=== PATIENT | male | born 1985 | race Caucasian/White ===

== ENCOUNTER 2018-12-10 15:01 | Emergency (ER) | payer MEDICAID ==
[~2018-12-10] VITALS: Ht 172.7 cm; Wt 63.6 kg
[2018-12-10] MEDS ORDERED: BENZ1TAB7 PO (15:36)
[2018-12-10] MEDS ORDERED: OSC500T PO (15:36)
[2018-12-10] MEDS ORDERED: DOCU-28 PO (15:36)
[2018-12-10 15:56] LABS: URINE AMPHETAMINE SCREEN NEGATIVE (Neg); URINE BARBITUATE SCREEN NEGATIVE (Neg); URINE BENZODIAZEPINES SCREEN NEGATIVE (Neg); URINE CANNABINOID SCREEN NEGATIVE (Neg); URINE COCAINE SCREEN NEGATIVE (Neg); URINE METHADONE SCREEN NEGATIVE (Neg); URINE OPIATE SCREEN NEGATIVE (Neg); URINE PHENCYCLIDINE SCREEN NEGATIVE (Neg)
[2018-12-10 15:57] LABS: BASOPHILS # (AUTO) 0.1 X10'3 (0-0.2); BASOPHILS % (AUTO) 0.7 % (0-1); EOSINOPHILS # (AUTO) 0.1 X10'3 (0-0.9); EOSINOPHILS % (AUTO) 0.9 % (0-6); HEMATOCRIT 43.5 % (42.0-52.0); HEMOGLOBIN 15.3 g/dl (14.0-17.9); LYMPHOCYTES # (AUTO) 1.9 X10'3 (1.1-4.8); LYMPHOCYTES % (AUTO) 19.7 % (21-51); MEAN CORPUSCULAR HEMOGLOBIN 29.9 PG (27.0-31.0); MEAN CORPUSCULAR HGB CONC 35.1 g/dL (33.0-36.5); MEAN CORPUSCULAR VOLUME 85.1 FL (78-98); MEAN PLATELET VOLUME 7.8 FL (7.4-10.4); MONOCYTES # (AUTO) 0.6 X10'3 (0-0.9); MONOCYTES % (AUTO) 6.4 % (2-12); NEUTROPHILS # (AUTO) 6.8 X10'3 (1.8-7.7); NEUTROPHILS % (AUTO) 72.3 % (42-75); PLATELET COUNT 255 X10'3 (140-440); RED BLOOD COUNT 5.11 X10'6 (4.70-6.10); RED CELL DISTRIBUTION WIDTH 13.1 % (11.5-14.5); WHITE BLOOD COUNT 9.5 X10'3 (4.5-11.0)
[2018-12-10 15:58] LABS: CLARITY,URINE CLEAR (Clear); COLOR,URINE YELLOW (Yellow); GLUCOSE, URINE NEGATIVE (Neg); KETONES,URINE NEGATIVE (Neg); LEUKOCYTE ESTERASE ,URINE NEGATIVE (Neg); NITRITES, URINE NEGATIVE (Neg); OCCULT BLOOD,URINE NEGATIVE (Neg); PROTEIN,URINE NEGATIVE (Neg); UROBILINOGEN,URINE 0.2 E.U/dL (0.2-1.0)
--- NOTE | 2018-12-10 16:00 | NUR ---
Pt moved into ER bed 15
[2018-12-10 16:03] LABS: ALANINE AMINOTRANSFERASE 30 U/L (12-78); ALBUMIN 4.1 G/DL (3.4-5.0); ALBUMIN/GLOBULIN RATIO 1.3 (1.1-1.5); ALKALINE PHOSPHATASE 108 IU/L (46-116); ANION GAP 10 (8-16); ASPARTATE AMINO TRANSFERASE 18 U/L (10-37); BILIRUBIN,TOTAL 0.3 MG/DL (0.1-1.0); BLOOD UREA NITROGEN 11 MG/DL (7-18); BUN/CREATININE RATIO 14.1 (5.4-32.0); CALCIUM 9.1 MG/DL (8.5-10.1); CHLORIDE 102 MMOL/L (99-107); CREATININE 0.78 MG/DL (0.60-1.10); GLUCOSE 89 MG/DL (70-104); POTASSIUM 3.6 MMOL/L (3.5-5.1); SODIUM 139 MMOL/L (135-145); TOTAL CARBON DIOXIDE 26.8 MMOL/L (24-32); TOTAL PROTEIN 7.2 G/DL (6.4-8.2); eGFR > 90 ML/MIN
[2018-12-10 16:04] LABS: UA COLLECTION TYPE CLN CATCH MIDSTREAM
[2018-12-10 16:12] LABS: ETHANOL < 0.010 GM/DL (0.0-0.010)
--- NOTE | 2018-12-10 17:18 | NUR ---
Pt resting comfortably; given snack by sitter. Will continue to monitor.
--- NOTE | 2018-12-10 17:38 | NUR ---
Pt moved into ER bed 25. Ambulating without difficulty. Report called to Tiffanie BOWMAN
--- NOTE | 2018-12-10 17:42 | NUR ---
Received to room 25, report from Kassandra. Oriented to room and unit policies.
--- NOTE | 2018-12-10 18:57 | NUR ---
One to one with the patient to assess for acuity of mental health symptoms. The patient is vague and a poor historian. He denied being seen on an outpatient basis. Call to [facility] office and spoke with Missy regarding patient and she stated that the patient is being followed by the [facility] and is on an [facility] conservatorship and is placed at [facility]. He stated that he is hearing voices all the time telling him to kill himself, hurt other people, and to steal. He reports he is having visual hallucinations of "flying horses" He denies being depressed or problems sleeping. Requested that [facility] team contact [facility] for a list of his medications.
[2018-12-10] MEDS ORDERED: BENZ0.5T35 PO (19:25)
[2018-12-10] MEDS ORDERED: ACET-812 PO (19:25)
[2018-12-10] MEDS ORDERED: CLOZ200T PO (19:25)
[2018-12-10] MEDS ORDERED: CALCIUM CARB PO (19:25)
[2018-12-10] MEDS ORDERED: HALO10TA13 PO (19:25)
[2018-12-10] MEDS ORDERED: CLON-527 PO (19:25)
[2018-12-10] MEDS ORDERED: DOCU250C4 PO (19:25)
[2018-12-10] MEDS ORDERED: VIT PO (19:25)
[2018-12-10] MEDS ORDERED: CALC500T11 PO (19:27)
[2018-12-10] MEDS ORDERED: clonazePAM 1mg tablet PO PRN (20:35)
[2018-12-10] MEDS ORDERED: acetaminophen 325mg tablet PO PRN (20:35)
[2018-12-10] MEDS ORDERED: calcium carbonate 500mg chew tablet PO PRN (20:35)
[2018-12-10] MEDS ORDERED: haloperidol 5mg tablet PO SCH (21:00)
--- NOTE | 2018-12-10 21:18 | NUR ---
Per pharmacy the patient's clozaril will not be available unitl tomorrow because they have to check with the registry in the am.
--- NOTE | 2018-12-10 21:39 | NUR ---
The patient appears to be sleeping
--- NOTE | 2018-12-11 00:55 | NUR ---
The patient appearst to be sleeping
--- NOTE | 2018-12-11 02:30 | NUR ---
The patient appears to be sleeping
--- NOTE | 2018-12-11 04:22 | NUR ---
The patient appears to be asleep
[2018-12-11 05:46] VITALS: BP 98/55
--- NOTE | 2018-12-11 07:00 | NUR ---
Pt up ambulating around his room. Cooperative and following commands.
[2018-12-11] MEDS ORDERED: docusate sod 250mg capsule PO SCH (08:00)
[2018-12-11] MEDS ORDERED: benztropine 1mg tablet PO SCH (08:00)
[2018-12-11] MEDS ORDERED: calcium carbonate/vitamin D3 tablet PO SCH (08:00)
--- NOTE | 2018-12-11 09:34 | NUR ---
pt is up and down from bed to pacing, he apprears to be calm, in no distress, states he doesnt want to leave the unit
--- NOTE | 2018-12-11 10:27 | NUR ---
pt is supine in bed, staring at the ceiling, no s/s of distress observed
--- NOTE | 2018-12-11 11:26 | NUR ---
pt is up pacing the floor, he is calm, no agitation
--- NOTE | 2018-12-11 12:40 | NUR ---
pt is up pacing the floor, he is calm, no agitation observed
--- NOTE | 2018-12-11 13:00 | NUR ---
pt given his belongings, he is changing into his street clothes,no s/s of distress observed, has signed dc paperwork
[2018-12-11] MEDS ORDERED: clozapine 100mg tablet PO SCH (21:00)
== END 2018-12-11 14:35 | disposition home or self-care (01) ==
LOC: ER 15:01
DX: F15.959 Other stimulant use, unspecified with stimulant-induced psychotic disorder, unspecified (principal); F20.9 Schizophrenia, unspecified; Z59.0 Homelessness; Z87.11 Personal history of peptic ulcer disease; Z79.899 Other long term (current) drug therapy
CPT/HCPCS: 36415; 80053; 80305; 80320; 81003; 84443; 85025; 99284

== ENCOUNTER 2024-02-07 21:44 | Emergency (ER) | payer MEDICAID ==
[~2024-02-07] VITALS: Ht 175.3 cm; Wt 81.8 kg
[~2024-02-07 21:44] MED LIST: ACET-812 PO; BENZ0.5T36 PO; CALC500T11 PO; CALCIUM CARB PO; CLON-527 PO; CLOZ200T8 PO; DOCU-395 PO; HALO10TA13 PO; VIT PO
[2024-02-07 21:54] VITALS: TEMP 98.1
[2024-02-07] MEDS ORDERED: HYDR-3686 PO (22:40)
[2024-02-07] MEDS: hydrOXYzine 25 MG tablet PO ONE (22:45)
[2024-02-07 23:15] VITALS: BP 140/82; PULSE 91; RESP 15; O2SAT 98
== END 2024-02-07 23:18 | disposition home or self-care (01) ==
LOC: ER 21:44
DX: F41.9 Anxiety disorder, unspecified (principal); Z79.899 Other long term (current) drug therapy; Z79.1 Long term (current) use of non-steroidal anti-inflammatories (NSAID)
CPT/HCPCS: 99283; Q0177

== ENCOUNTER 2024-02-14 19:22 | Emergency (ER) | payer MEDICAID ==
[~2024-02-14] VITALS: Ht 172.7 cm; Wt 87.3 kg
[~2024-02-14 19:22] MED LIST changes: +HYDR-3686 PO
[2024-02-14] MEDS: normal saline 1000ML IV soln IVB ONE (20:24)
[2024-02-14 20:37] LABS: BASOPHILS # (AUTO) 0.1 X10'3 (0-0.2); BASOPHILS % (AUTO) 0.3 % (0-1); EOSINOPHILS # (AUTO) 0.1 X10'3 (0-0.9); EOSINOPHILS % (AUTO) 0.4 % (0-6); HEMATOCRIT 44.8 % (42.0-52.0); HEMOGLOBIN 15.1 g/dl (14.0-17.9); LYMPHOCYTES # (AUTO) 1.7 X10'3 (1.1-4.8); LYMPHOCYTES % (AUTO) 10.9 % (21-51); MEAN CORPUSCULAR HEMOGLOBIN 28.9 PG (27.0-31.0); MEAN CORPUSCULAR HGB CONC 33.8 g/dL (33.0-36.5); MEAN CORPUSCULAR VOLUME 85.7 FL (78-98); MEAN PLATELET VOLUME 7.3 FL (7.4-10.4); MONOCYTES % (AUTO) 6.4 % (2-12); PLATELET COUNT 273 X10'3 (140-440); RED BLOOD COUNT 5.23 X10'6 (4.70-6.10); RED CELL DISTRIBUTION WIDTH 13.6 % (11.5-14.5); WHITE BLOOD COUNT 15.8 X10'3 (4.5-11.0)
[2024-02-14 20:58] LABS: ALBUMIN 4.1 G/DL (3.4-5.0); ANION GAP 10 (8-16); BLOOD UREA NITROGEN 15 MG/DL (7-18); BUN/CREATININE RATIO 11.5 (10.0-20.0); CALCIUM 8.7 MG/DL (8.5-10.1); CHLORIDE 105 MMOL/L (99-107); GLUCOSE 88 MG/DL (70-104); MAGNESIUM 1.8 MG/DL (1.5-2.4); POTASSIUM 3.3 MMOL/L (3.5-5.1); PRO BRAIN NATRIURETIC PEPTIDE < 30 PG/ML (0-125); SODIUM 141 MMOL/L (135-145); eCRCL 74 ML/MIN; eGFR 61 ML/MIN
[2024-02-15 00:41] LABS: BILIRUBIN,URINE NEGATIVE (Neg); CLARITY,URINE CLEAR (Clear); COLOR,URINE YELLOW (Yellow); GLUCOSE, URINE NEGATIVE (Neg); KETONES,URINE 15 mg/dl (Neg); LEUKOCYTE ESTERASE ,URINE NEGATIVE (Neg); NITRITES, URINE NEGATIVE (Neg); OCCULT BLOOD,URINE TRACE-INTACT (Neg); PROTEIN,URINE NEGATIVE (Neg); UROBILINOGEN,URINE 0.2 E.U/dL (0.2-1.0)
[2024-02-15 00:44] LABS: UA COLLECTION TYPE URINAL
[2024-02-15 00:47] LABS: BACTERIA,URINE FEW /HPF (Neg); RBC,URINE 0-2 /HPF (0-2); SQUAMOUS EPITHELIAL CELL,UR FEW /LPF (FEW); WBC,URINE NONE SEEN /HPF (0-4)
[2024-02-15 01:19] VITALS: BP 117/82; PULSE 89; RESP 18; TEMP 98.8; O2SAT 97
== END 2024-02-15 01:27 | disposition home or self-care (01) ==
LOC: ER 19:23
DX: R55 Syncope and collapse (principal); R53.1 Weakness; F10.90 Alcohol use, unspecified, uncomplicated; F17.210 Nicotine dependence, cigarettes, uncomplicated; F20.9 Schizophrenia, unspecified; Z79.899 Other long term (current) drug therapy; Z59.00 Homelessness unspecified
CPT/HCPCS: 36415; 71045; 80048; 81001; 83735; 83880; 84145; 84484; 85025; 93005; 96360; 99285; J7030